=== PATIENT | male | born 1945 | race Caucasian/White ===

== ENCOUNTER 2022-05-18 09:01 | Day surgery (SDC) | payer OTHER ==
[~2022-05-18] VITALS: Ht 177.8 cm; Wt 79.4 kg
[~2022-05-18 09:01] MED LIST: ASCORBIC ACID500 MG PO; B-12500 MC2 PO; LACT PO; ORTIKOS6 M1 PO; TRAZ100 PO
--- NOTE | 2022-05-18 12:52 | NUR ---
PT BACK TO RECOVERY ROOM VIA RECLINER AFTER PROCEDURE. AWAKE AND ALERT, VSS. AT BEDSIDE.
--- NOTE | 2022-05-18 13:34 | NUR ---
DR STEEN AT BEDSIDE SPEAKING WITH PT AND SPOUSE. RIGHT RADIAL SITE WITH TR BAND AND SPLINT IN PLACE. NO BLEEDING OR PAIN AT SITE.
--- NOTE | 2022-05-18 14:04 | NUR ---
INITIAL 3 CC'S AIR REMOVED FROM RIGHT RADIAL TR BAND. PT DENIES PAIN TO THE AREA. VSS, CALL LIGHT IN REACH.
--- NOTE | 2022-05-18 14:30 | NUR ---
TR BAND HAS BEEN FULLY DEFLATED. NO BLEEDING OR SWELLING NOTED. SPOUSE REMAINS AT BEDSIDE. VSS, CALL LIGHT IN REACH.
--- NOTE | 2022-05-18 14:48 | NUR ---
report from ayleen day. pt given lunch tray. tr band fully deflated. site soft and non-tender. no bleeding noted. so at bedside.
[2022-05-18] MEDS ORDERED: ATOR40TA PO (14:52)
[2022-05-18] MEDS ORDERED: Aspir 8181 MG PO (14:53)
--- NOTE | 2022-05-18 15:37 | NUR ---
PT GIVEN DC INSTRUCTIONS AND VERBALIZED UNDERSTANDING. IV OUT. PT CHANGED INTO CLOTHES. TR BAND REMOVED. NO BLEEDING NOTED. SITE SOFT AND NON-TENDER PER PT. CLOTH DOT PLACED. SLING APPLIED. PT TAKEN TO PARKING LOT VIA WC. TO DRIVE PT HOME.
== END 2022-05-18 15:15 | disposition home or self-care (01) ==
LOC: MHTC 09:01
DX: I25.110 Atherosclerotic heart disease of native coronary artery with unstable angina pectoris (principal); R94.39 Abnormal result of other cardiovascular function study; R06.09 Other forms of dyspnea; R53.83 Other fatigue; R00.1 Bradycardia, unspecified; R94.31 Abnormal electrocardiogram [ECG] [EKG]; Z82.49 Family history of ischemic heart disease and other diseases of the circulatory system
CPT/HCPCS: 76937; 93454; 99152; 99153; A9270; C1769; C1887; C1894; J1644; J2250; J3010; J7030; J7040; Q9967

== ENCOUNTER 2022-06-03 07:38 | Day surgery (SDC) | payer OTHER ==
[~2022-06-03] VITALS: Ht 177.8 cm; Wt 77.0 kg
[~2022-06-03 07:38] MED LIST changes: +ATOR40TA PO; +Aspir 8181 MG PO
--- NOTE | 2022-06-03 11:35 | NUR ---
PT TO RECOVERY ROOM POST PROCEDURE. PT AWAKE AND CONVERSING APPROPRIATELY; REPORTS CHEST PRESSURE POST PROCEDURE, BUT DENIES CHEST PAIN. MONITOR SB 45-50'S, B/P 139/68, SPO2 100% RA, AFEBRILE. R RADIAL SITE NO SWELLING/HEMATOMA, TR BAND IN PLACE. PT'S AT BEDSIDE ATTENTIVE.
[2022-06-03] MEDS ORDERED: TICA90TA PO (11:51)
--- NOTE | 2022-06-03 14:05 | NUR ---
6 CC AIR REMOVED FROM TR BAND, SLOW OOZE AT SITE 6 CC AIR REINSTILLED; SITE REMAINS WITHOUT SWELLING/HEMATOMA.
--- NOTE | 2022-06-03 14:35 | NUR ---
PT AMB TO BATHROOM, GAIT STEADY; SITE UNCHANGED AFTER ACTIVITY.
--- NOTE | 2022-06-03 15:20 | NUR ---
TR BAND FULLY DEFLATED, NO OOZING/SWELLING/HEMATOMA.
--- NOTE | 2022-06-03 16:10 | NUR ---
PT DRESSED SELF WITH ASSISTANCE, SITE UNCHANGED. TR BAND REMOVED, CLOTH DOT AND WRIST IMMOBILIZER PLACED; IV REMOVED-CANNULA INTACT. PT DECLINED SLING, REPORTS HE HAS ONE AT HOME FROM LAST PROCEDURE.
--- NOTE | 2022-06-03 16:20 | NUR ---
PT AND RECEIVED DISCHARGE INSTRUCTIONS, MED LIST AND AFTER CARE INSTRUCTIONS; VERBALIZED GOOD UNDERSTANDING. PT LEFT FACILITY VIA W/C, CONDITION STABLE.
== END 2022-06-03 16:20 | disposition home or self-care (01) ==
LOC: MHTC 07:38
DX: I25.118 Atherosclerotic heart disease of native coronary artery with other forms of angina pectoris (principal); I10 Essential (primary) hypertension
CPT/HCPCS: 76937; 85347; 92978; 99152; 99153; A9270; C1725; C1753; C1761; C1769; C1874; C1887; C1894; C9600; C9602; J1644; J2250; J3010; J7030; Q9967

== ENCOUNTER 2024-03-10 22:19 | Emergency (ER) | payer OTHER ==
[~2024-03-10] VITALS: Ht 177.8 cm; Wt 74.8 kg
[~2024-03-10 22:19] MED LIST changes: +TICA90TA PO
[2024-03-10 22:29] VITALS: BP 149/92
[2024-03-10 23:34] LABS: Source, Urine Straight Cath
[2024-03-10 23:37] LABS: Bilirubin, Urine Neg (Neg); Blood, Urine 5+ (Neg); Glucose Qualitative, Urine Neg (Neg); Ketones, Urine Neg (Neg); Leukocyte Esterase, Urine 2+ (Neg); Nitrite, Urine Neg (Neg); Protein, Urine 2+ (Neg); Urobilinogen, Urine NORM (Normal); pH, Urine 6.5 (5.0-8.0)
[2024-03-10 23:43] LABS: Appearance, Urine Hazy (Clear); Color, Urine Pale Yellow (P-Yellow)
[2024-03-10 23:44] LABS: Amorphous Light (0-Heavy); Bacteria Rare /hpf; Red Blood Cells, Urine TNTC /hpf (0-2); Squamous Epithelial Cells Not Seen /hpf (Few)
[2024-03-10] MEDS ORDERED: Cephalexin Monohydrate 500 MG Cap PO ONE (23:55)
== END 2024-03-11 00:13 | disposition home or self-care (01) ==
LOC: ER 22:19
PROVIDERS: Physician Assistant
DX: N39.0 Urinary tract infection, site not specified (principal); R31.9 Hematuria, unspecified; Z79.51 Long term (current) use of inhaled steroids; Z79.82 Long term (current) use of aspirin; Z79.899 Other long term (current) drug therapy
CPT/HCPCS: 81001; 87086; 99283; A9270